=== PATIENT | female | born 1945 | race Caucasian/White ===

== ENCOUNTER 2019-06-03 06:41 | Day surgery (SDC) | payer BC, MEDICARE, OTHER ==
[2019-05-27 14:15] LABS: BASOPHILS # (AUTO) 0.1 X10'3 (0-0.2); BASOPHILS % (AUTO) 0.8 % (0-1); EOSINOPHILS # (AUTO) 0.1 X10'3 (0-0.9); EOSINOPHILS % (AUTO) 0.8 % (0-6); LYMPHOCYTES # (AUTO) 1.8 X10'3 (1.1-4.8); LYMPHOCYTES % (AUTO) 27.3 % (21-51); MEAN CORPUSCULAR HEMOGLOBIN 28.7 PG (27.0-31.0); MEAN CORPUSCULAR HGB CONC 33.1 g/dL (33.0-36.5); MEAN CORPUSCULAR VOLUME 86.8 FL (78-98); MEAN PLATELET VOLUME 8.5 FL (7.4-10.4); MONOCYTES # (AUTO) 0.6 X10'3 (0-0.9); MONOCYTES % (AUTO) 9.4 % (2-12); NEUTROPHILS % (AUTO) 61.7 % (42-75); PRE OP HEMATOCRIT 40.2 % (35.0-45.0); PRE OP HEMOGLOBIN 13.3 g/dL (12.0-16.0); PRE OP PLATELET COUNT 216 X10'3 (140-440); RED BLOOD COUNT 4.63 X10'6 (4.20-5.60); RED CELL DISTRIBUTION WIDTH 15.5 % (11.5-14.5)
[2019-05-27 14:24] LABS: PRE OP PROTIME 10.5 SECONDS (9.0-12.0)
[2019-05-27 14:26] LABS: ALBUMIN 3.4 G/DL (3.4-5.0); ALBUMIN/GLOBULIN RATIO 0.9 (1.1-1.5); ALKALINE PHOSPHATASE 85 IU/L (46-116); BLOOD UREA NITROGEN 17 MG/DL (7-18); CALCIUM 9.1 MG/DL (8.5-10.1); CHLORIDE 108 MMOL/L (99-107); CREATININE 0.85 MG/DL (0.40-0.90); PRE OP ALT 25 U/L (30-65); PRE OP ANION GAP 6 (8-16); PRE OP AST 14 U/L (10-37); PRE OP BILIRUB, TOTAL 0.3 MG/DL (0.0-1.0); PRE OP GLUCOSE 94 MG/DL (70-104); PRE OP POTASSIUM 3.9 MMOL/L (3.4-5.1); PRE OP SODIUM 141 MMOL/L (135-145); TOTAL CARBON DIOXIDE 27.3 MMOL/L (24-32); TOTAL PROTEIN 7.1 G/DL (6.4-8.2); eGFR 66 ML/MIN
[~2019-06-03] VITALS: Ht 163.8 cm; Wt 94.6 kg
[~2019-06-03 06:41] MED LIST: APIX5TAB3 PO; BUPIVAcaine/PF 2.5mg/ml (0.25%) 10ml vial ONE; CALC-496 PO; CHOL200013 PO; CITA20TA16 PO; CYAN3000 SL; DOCU-264 PO; LEVO75TA7 PO; PREVAGEN PO
[2019-06-03] MEDS ORDERED: LIDOcaine 1% (10mg/ml) 2ml vial ONE (07:14)
[2019-06-03] MEDS ORDERED: ringers solution, lacted 1,000 ML IV SCH ×2 (07:15→08:54)
[2019-06-03] MEDS ORDERED: famotidine 20mg tablet PO ONE (07:15)
[2019-06-03] MEDS ORDERED: cefazolin/dext.iso 2gm/100 ML IV ONE (07:15)
[2019-06-03] MEDS ORDERED: LIDOcaine 1% 30ml preserv. free vial ONE (07:36)
[2019-06-03 08:08] VITALS: BP 130/79
[2019-06-03 08:14] VITALS: BP 130/79
[2019-06-03] MEDS ORDERED: BUPIVAcaine/PF 2.5mg/ml (0.25%) 10ml vial ONE (08:38)
[2019-06-03] MEDS ORDERED: proCHLORperazine 10 MG/2 ml inj IV PRN (08:55)
[2019-06-03] MEDS ORDERED: meperidine/PF 25mg/ml syringe IV PRN ×3 (08:55)
[2019-06-03] MEDS ORDERED: ondansetron/PF 4mg/2ml inj IV PRN (08:55)
[2019-06-03] MEDS ORDERED: morphine 4 MG/ML inj SYRINge IV PRN ×2 (08:55)
[2019-06-03] MEDS ORDERED: fentaNYL/PF 50MCG/1 ML 2ML syringe ONE (09:01)
[2019-06-03] MEDS ORDERED: MIDAZolam 5mg/5ml vial ONE (09:01)
[2019-06-03] MEDS ORDERED: ketorolac trometh. 30mg/ml inj. ONE (09:21)
[2019-06-03 09:24] VITALS: BP 161/79
--- NOTE | 2019-06-03 09:24 | NUR ---
Received from OR via [facility] , accompanied by Anesthesiologist JENNIFER and report given by Anesthesiolgist. PATIENT WITH VSS. 20G PIV IN LEFT UE AND SPLINT TO RIGHT. DONNED ICE UPON ARRIVAL. DENIES PAIN. VSS. Addendum: 06/03/19 at 0935 by Kurt Fortune RN, RN Amended: Links added.
[2019-06-03 09:34] VITALS: BP 163/80
[2019-06-03 09:44] VITALS: BP 142/69
[2019-06-03 09:54] VITALS: BP 136/70
== END 2019-06-03 10:04 | disposition home or self-care (01) ==
LOC: PAS 06:41
PROVIDERS: ATTEND Orthopaedic Surgery Hand Surgery
DX: M65.331 Trigger finger, right middle finger (principal); I48.91 Unspecified atrial fibrillation; F32.9 Major depressive disorder, single episode, unspecified; E66.9 Obesity, unspecified; Z68.35 Body mass index [BMI] 35.0-35.9, adult; Z72.89 Other problems related to lifestyle; Z96.651 Presence of right artificial knee joint; Z98.890 Other specified postprocedural states; Z98.84 Bariatric surgery status; Z95.0 Presence of cardiac pacemaker; Z87.891 Personal history of nicotine dependence; Z79.899 Other long term (current) drug therapy
CPT/HCPCS: 26055; 36415; 80053; 82948; 85025; 85610; 85730; 93005; J1885; J2001; J2250; J3010; J3490; A4215; J7120

== ENCOUNTER 2021-10-08 16:07 | Emergency (ER) | payer MEDICARE, OTHER ==
[~2021-10-08] VITALS: Ht 170.2 cm; Wt 90.9 kg
[~2021-10-08 16:07] MED LIST changes: -BUPIVAcaine/PF 2.5mg/ml (0.25%) 10ml vial ONE; -DOCU-264 PO; +DOCU-323 PO
[2021-10-08] MEDS ORDERED: proCHLORperazine 10 MG/2 ml inj IM ONE ×2 (17:05)
[2021-10-08] MEDS ORDERED: ondansetron 4mg rapidly disintigrating tab PO ONE ×2 (17:05)
[2021-10-08 20:42] VITALS: BP 148/82
[2021-10-08 20:54] LABS: BASOPHILS % (AUTO) 0.5 % (0-1); EOSINOPHILS # (AUTO) 0.1 X10'3 (0-0.9); EOSINOPHILS % (AUTO) 0.9 % (0-6); HEMATOCRIT 34.5 % (35.0-45.0); HEMOGLOBIN 11.3 g/dl (12.0-16.0); LYMPHOCYTES # (AUTO) 1.9 X10'3 (1.1-4.8); LYMPHOCYTES % (AUTO) 24.4 % (21-51); MEAN CORPUSCULAR HEMOGLOBIN 24.9 PG (27.0-31.0); MEAN CORPUSCULAR HGB CONC 32.7 g/dL (33.0-36.5); MONOCYTES # (AUTO) 0.8 X10'3 (0-0.9); NEUTROPHILS # (AUTO) 4.9 X10'3 (1.8-7.7); NEUTROPHILS % (AUTO) 64.2 % (42-75); PLATELET COUNT 308 X10'3 (140-440); RED BLOOD COUNT 4.54 X10'6 (4.20-5.60); RED CELL DISTRIBUTION WIDTH 16.2 % (11.5-14.5); WHITE BLOOD COUNT 7.7 X10'3 (4.5-11.0)
[2021-10-08 21:06] LABS: ALANINE AMINOTRANSFERASE 30 U/L (12-78); ALBUMIN 3.7 G/DL (3.4-5.0); ALBUMIN/GLOBULIN RATIO 0.9 (1.1-1.5); ALKALINE PHOSPHATASE 100 IU/L (46-116); ANION GAP 9 (8-16); ASPARTATE AMINO TRANSFERASE 25 U/L (10-37); BILIRUBIN,TOTAL 0.5 MG/DL (0.1-1.0); BLOOD UREA NITROGEN 13 MG/DL (7-18); BUN/CREATININE RATIO 13.5 (6.6-38.0); CHLORIDE 106 MMOL/L (99-107); CREATININE 0.96 MG/DL (0.40-0.90); GLUCOSE 103 MG/DL (70-104); POTASSIUM 3.6 MMOL/L (3.5-5.1); SODIUM 140 MMOL/L (135-145); TOTAL CARBON DIOXIDE 25.2 MMOL/L (24-32); TOTAL PROTEIN 7.8 G/DL (6.4-8.2); eGFR 57 ML/MIN
[2021-10-08] MEDS ORDERED: MECL-226 PO ×3 (21:43→21:57)
[2021-10-08] MEDS ORDERED: PROC-8 PO ×3 (21:43→21:57)
== END 2021-10-08 22:31 | disposition home or self-care (01) ==
LOC: ER 16:07
DX: H81.10 Benign paroxysmal vertigo, unspecified ear (principal); R11.0 Nausea; I48.91 Unspecified atrial fibrillation; Z95.0 Presence of cardiac pacemaker; Z79.899 Other long term (current) drug therapy
CPT/HCPCS: 36415; 70450; 71045; 80053; 83880; 84484; 85025; 93005; 96372; 99285; J0780

== ENCOUNTER 2023-12-07 09:05 | Day surgery (SDC) | payer MEDICARE, OTHER ==
[2023-12-01 15:25] LABS: BASOPHILS # (AUTO) 0.1 X10'3 (0-0.2); BASOPHILS % (AUTO) 0.8 % (0-1); EOSINOPHILS # (AUTO) 0.1 X10'3 (0-0.9); EOSINOPHILS % (AUTO) 1.4 % (0-6); LYMPHOCYTES # (AUTO) 2.2 X10'3 (1.1-4.8); LYMPHOCYTES % (AUTO) 22.2 % (21-51); MEAN CORPUSCULAR HEMOGLOBIN 31.1 PG (27.0-31.0); MEAN CORPUSCULAR HGB CONC 33.9 g/dL (33.0-36.5); MEAN PLATELET VOLUME 8.2 FL (7.4-10.4); MONOCYTES # (AUTO) 0.8 X10'3 (0-0.9); MONOCYTES % (AUTO) 8.2 % (2-12); NEUTROPHILS # (AUTO) 6.6 X10'3 (1.8-7.7); NEUTROPHILS % (AUTO) 67.4 % (42-75); PRE OP HEMATOCRIT 43.8 % (35.0-45.0); PRE OP HEMOGLOBIN 14.8 g/dL (12.0-16.0); PRE OP PLATELET COUNT 228 X10'3 (140-440); PRE OP WHITE BLOOD COUNT 9.8 10'3 (4.8-10.8); RED BLOOD COUNT 4.76 X10'6 (4.20-5.60); RED CELL DISTRIBUTION WIDTH 13.6 % (11.5-14.5)
[2023-12-01 16:06] LABS: ALBUMIN 3.7 G/DL (3.4-5.0); ALKALINE PHOSPHATASE 93 IU/L (46-116); BLOOD UREA NITROGEN 14 MG/DL (7-18); BUN/CREATININE RATIO 17.9 (10.0-20.0); CALCIUM 9.4 MG/DL (8.5-10.1); CHLORIDE 107 MMOL/L (99-107); CREATININE 0.78 MG/DL (0.40-0.90); PRE OP ALT 34 U/L (30-65); PRE OP ANION GAP 8 (8-16); PRE OP AST 30 U/L (10-37); PRE OP BILIRUB, TOTAL 0.4 MG/DL (0.0-1.0); PRE OP GLUCOSE 84 MG/DL (70-104); PRE OP POTASSIUM 4.1 MMOL/L (3.4-5.1); PRE OP SODIUM 139 MMOL/L (135-145); TOTAL PROTEIN 7.4 G/DL (6.4-8.2); eGFR 72 ML/MIN
[~2023-12-07] VITALS: Ht 162.6 cm; Wt 112.0 kg
[2023-12-07] VITALS (7 sets, daily range): BP systolic 141–164; BP diastolic 86–100; PULSE 75–77; RESP 15–25; TEMP 98; O2SAT 93–97
[2023-12-07] MEDS: famotidine 20mg tablet PO ONE (05:30)
[2023-12-07] MEDS: cefazolin 2gm/D5W 100mL 100 ML IV ONE (05:30)
[~2023-12-07 09:05] MED LIST changes: +ALLO100T49 PO; +BREX1TAB PO; -CALC-496 PO; +CALCIUM; -CHOL200013 PO; +CITA-311 PO; -CITA20TA16 PO; +CITA20TA24 PO; -CYAN3000 SL; -DOCU-323 PO; +FURO20TA4 PO; +IRON; +MVI; +VITAMIN B COMPLEX; +VITAMIN C; +VITAMIN D; +ringers solution, lacted 1,000 ML IV SCH
[2023-12-07] MEDS ORDERED: proCHLORperazine 10 MG/2 ml inj IV PRN (09:45)
[2023-12-07] MEDS ORDERED: ringers solution, lacted 1,000 ML IV SCH (09:45)
[2023-12-07] MEDS ORDERED: morphine 4 MG/ML inj SYRINge IV PRN (09:45)
[2023-12-07] MEDS ORDERED: morphine 2 MG/ML inj. syringe IV PRN (09:45)
[2023-12-07] MEDS ORDERED: meperidine/PF 25mg/ml syringe IV PRN ×3 (09:45)
[2023-12-07] MEDS ORDERED: propofol inj 20 ML IV ONE (12:23)
[2023-12-07] MEDS ORDERED: midazolam 1 mg/ML 2ml injection ONE (12:23)
[2023-12-07] MEDS ORDERED: fentaNYL/PF 50MCG/1 ML 2ML syringe ONE (12:23)
[2023-12-07] MEDS: BUPIVAcaine/PF 2.5mg/ml (0.25%) 10ml vial ONE (12:52)
[2023-12-07] MEDS: LIDOcaine 2% (20mg/ml) 5ml vial ONE (12:52)
[2023-12-07] MEDS: ondansetron/PF 4mg/2ml inj IV PRN (13:36)
== END 2023-12-07 13:46 | disposition home or self-care (01) ==
LOC: PAS 09:05
PROVIDERS: ATTEND Orthopaedic Surgery Hand Surgery
DX: G56.01 Carpal tunnel syndrome, right upper limb (principal); M65.341 Trigger finger, right ring finger; I10 Essential (primary) hypertension; E03.9 Hypothyroidism, unspecified; E66.9 Obesity, unspecified; F32.A Depression, unspecified; I48.91 Unspecified atrial fibrillation; M10.9 Gout, unspecified; I25.2 Old myocardial infarction; I20.9 Angina pectoris, unspecified; M19.90 Unspecified osteoarthritis, unspecified site; Z87.891 Personal history of nicotine dependence; Z79.01 Long term (current) use of anticoagulants; Z79.890 Hormone replacement therapy; Z79.899 Other long term (current) drug therapy; Z90.710 Acquired absence of both cervix and uterus; Z95.0 Presence of cardiac pacemaker; Z96.651 Presence of right artificial knee joint; Z98.84 Bariatric surgery status; Z98.890 Other specified postprocedural states; Z68.41 Body mass index [BMI] 40.0-44.9, adult
CPT/HCPCS: 26055; 36415; 64721; 80053; 82948; 85025; 93005; J0690; J2250; J2405; J2704; J3010; J3490; J7030; J7120; Z7506; Z7512; A4215; A4565; A6449

== ENCOUNTER 2023-12-28 07:19 | Day surgery (SDC) | payer MEDICARE, OTHER ==
[2023-12-25 11:48] LABS: BASOPHILS # (AUTO) 0.1 X10'3 (0-0.2); EOSINOPHILS # (AUTO) 0.1 X10'3 (0-0.9); EOSINOPHILS % (AUTO) 1.5 % (0-6); HEMATOCRIT 42.5 % (35.0-45.0); HEMOGLOBIN 14.4 g/dl (12.0-16.0); LYMPHOCYTES # (AUTO) 1.8 X10'3 (1.1-4.8); LYMPHOCYTES % (AUTO) 26.6 % (21-51); MEAN CORPUSCULAR HGB CONC 33.9 g/dL (33.0-36.5); MEAN CORPUSCULAR VOLUME 91.6 FL (78-98); MONOCYTES # (AUTO) 0.7 X10'3 (0-0.9); MONOCYTES % (AUTO) 10.6 % (2-12); NEUTROPHILS # (AUTO) 4.1 X10'3 (1.8-7.7); NEUTROPHILS % (AUTO) 60.3 % (42-75); PLATELET COUNT 225 X10'3 (140-440); RED BLOOD COUNT 4.64 X10'6 (4.20-5.60); RED CELL DISTRIBUTION WIDTH 13.7 % (11.5-14.5); WHITE BLOOD COUNT 6.9 X10'3 (4.5-11.0)
[2023-12-25 12:03] LABS: ALANINE AMINOTRANSFERASE 40 U/L (12-78); ALBUMIN 3.4 G/DL (3.4-5.0); ALBUMIN/GLOBULIN RATIO 0.9 (1.1-1.5); ALKALINE PHOSPHATASE 80 IU/L (46-116); ANION GAP 10 (8-16); ASPARTATE AMINO TRANSFERASE 33 U/L (10-37); BILIRUBIN,TOTAL 0.4 MG/DL (0.1-1.0); BLOOD UREA NITROGEN 13 MG/DL (7-18); BUN/CREATININE RATIO 18.3 (10.0-20.0); CALCIUM 9.4 MG/DL (8.5-10.1); CHLORIDE 108 MMOL/L (99-107); CREATININE 0.71 MG/DL (0.40-0.90); GLUCOSE 71 MG/DL (70-104); POTASSIUM 4.2 MMOL/L (3.5-5.1); SODIUM 143 MMOL/L (135-145); TOTAL CARBON DIOXIDE 25.5 MMOL/L (24-32); TOTAL PROTEIN 7.2 G/DL (6.4-8.2); eGFR 80 ML/MIN
[~2023-12-28] VITALS: Ht 162.6 cm; Wt 110.0 kg
[2023-12-28] VITALS (8 sets, daily range): BP systolic 131–154; BP diastolic 61–77; PULSE 62–79; RESP 15–19; TEMP 97.7; O2SAT 97–100
[2023-12-28] MEDS: cefazolin 2gm/D5W 100mL 100 ML IV ONE (05:30)
[2023-12-28] MEDS: famotidine 20mg tablet PO ONE (05:30)
[2023-12-28] MEDS ORDERED: enalaprilat dihydrate 2.5mg/2ml vial IV PRN (07:50)
[2023-12-28] MEDS ORDERED: labetalol 20mg/4ml (5mg/ml) syringe IV PRN (07:50)
[2023-12-28] MEDS ORDERED: morphine 4 MG/ML inj SYRINge IV PRN (07:50)
[2023-12-28] MEDS ORDERED: meperidine/PF 25mg/ml syringe IV PRN ×3 (07:50)
[2023-12-28] MEDS ORDERED: ringers solution, lacted 1,000 ML IV SCH (07:50)
[2023-12-28] MEDS ORDERED: morphine 2 MG/ML inj. syringe IV PRN (07:50)
[2023-12-28] MEDS ORDERED: ondansetron/PF 4mg/2ml inj IV PRN (07:50)
[2023-12-28] MEDS ORDERED: proCHLORperazine 10 MG/2 ml inj IV PRN (07:50)
[2023-12-28] MEDS ORDERED: BUPIVAcaine/PF 2.5mg/ml (0.25%) 10ml vial ONE (09:20)
[2023-12-28] MEDS ORDERED: propofol 10mg/ml 20ml vial IV ONE (10:57)
[2023-12-28] MEDS ORDERED: midazolam 1 mg/ML 2ml injection ONE (11:08)
[2023-12-28] MEDS ORDERED: fentaNYL/PF 50MCG/1 ML 2ML syringe ONE (11:08)
[2023-12-28] MEDS: LIDOcaine 2% (20mg/ml) 5ml vial ONE (11:18)
[2023-12-28] MEDS: BUPIVAcaine/PF 2.5mg/ml (0.25%) 10ml vial ONE (11:18)
== END 2023-12-28 12:40 | disposition home or self-care (01) ==
LOC: PAS 07:19
PROVIDERS: ATTEND Orthopaedic Surgery Hand Surgery
DX: G56.02 Carpal tunnel syndrome, left upper limb (principal); M17.12 Unilateral primary osteoarthritis, left knee; M47.816 Spondylosis without myelopathy or radiculopathy, lumbar region; E66.01 Morbid (severe) obesity due to excess calories; Z68.41 Body mass index [BMI] 40.0-44.9, adult; J45.909 Unspecified asthma, uncomplicated; I48.91 Unspecified atrial fibrillation; F32.A Depression, unspecified; M10.9 Gout, unspecified; Z98.84 Bariatric surgery status; Z98.890 Other specified postprocedural states; Z95.0 Presence of cardiac pacemaker; Z87.891 Personal history of nicotine dependence; Z72.89 Other problems related to lifestyle; Z96.651 Presence of right artificial knee joint; Z79.899 Other long term (current) drug therapy
CPT/HCPCS: 29848; 36415; 80053; 82948; 85025; J0690; J2250; J2704; J3010; J3490; J7030; J7120; Z7506; Z7512; A4215; A6449